=== PATIENT | female | born 1955 | race Caucasian/White ===

== ENCOUNTER 2022-01-19 06:50 | Outpatient (CLI) | payer MEDICARE, BC ==
[~2022-01-19] VITALS: Ht 167.6 cm; Wt 82.6 kg
[~2022-01-19 06:50] MED LIST: ALBU8HFA PO; AMIT10TA6 PO; CARI-75 PO; CHOL400T57 PO; GABA-532 PO; HYDR-3972 PO; LOSA100T57 PO; ONDA4TAB12 PO; PRE5T PO; RIZA10TA98 PO; SPIIN INH
[2022-01-19 07:25] LABS: ABG BASE EXCESS -1.7 mmol/L (-2.0-2.0); ABG OXYGEN SATURATION 96.7 % (94-97); ABG PCO2 (T) 39.1 mmHg (32.0-45.0); ABG PO2 (T) 93.3 mmHg (75.0-100.0); ALLEN'S TEST POSITIVE; FCOHb 0.7 % (0.0-3.9); FMetHb 0.3 % (0.0-1.5); FO2Hb 95.7 % (94-97); TOTAL HEMOGLOBIN 12.6 G/dl (12.0-16.0)
[2022-01-19] MEDS ORDERED: albuterol 2.5 MG/3 ML nebule NEB PRN (07:50)
== END 2022-01-19 23:59 | disposition home or self-care (01) ==
LOC: RT 06:50
PROVIDERS: ATTEND Internal Medicine Rheumatology
DX: J84.9 Interstitial pulmonary disease, unspecified (principal); Z87.891 Personal history of nicotine dependence; Z79.899 Other long term (current) drug therapy
CPT/HCPCS: 36600; 82803; 85018; 94060; 94727; 94729; 94760

== ENCOUNTER 2023-01-08 13:38 | Outpatient (CLI) | payer MEDICARE, BC ==
[~2023-01-08] VITALS: Ht 165.1 cm; Wt 81.2 kg
[~2023-01-08 13:38] MED LIST changes: -LOSA100T57 PO; +LOSA100T58 PO
[2023-01-08] MEDS ORDERED: CYCL-1 PO (14:25)
[2023-01-08] MEDS ORDERED: OLME20TA23 PO (14:25)
[2023-01-08] MEDS ORDERED: ACET-1008 PO (14:29)
[2023-01-08] MEDS ORDERED: COFF1CAP2 PO (14:29)
[2023-01-08] MEDS ORDERED: CALM MAG SUPPLEMENT (14:29)
[2023-01-08] MEDS ORDERED: ALBU2.5V10 INH (14:29)
[2023-01-08] MEDS ORDERED: OSC500T PO (14:29)
[2023-01-15] MEDS ORDERED: ringers solution, lacted 1,000 ML IV SCH (05:00)
[2023-01-15] MEDS ORDERED: albuterol 2.5 MG/3 ML nebule NEB ONE (05:30)
[2023-01-15] MEDS ORDERED: tranexamic acid inj. 1,000 MG in normal saline IV soln 100ML IV ONE (05:30)
[2023-01-15] MEDS ORDERED: oxymetazoline 15 ML nasal spray NS ONE (05:30)
== END 2023-01-08 23:59 | disposition home or self-care (01) ==
LOC: LAB 13:38 → EDSTATUS 01-15 11:45
PROVIDERS: ATTEND Otolaryngology
DX: Z01.818 Encounter for other preprocedural examination (principal); R94.31 Abnormal electrocardiogram [ECG] [EKG]; I25.2 Old myocardial infarction; Z20.822 Contact with and (suspected) exposure to COVID-19
CPT/HCPCS: 36415; 93005; U0003; J3490; J7120

== ENCOUNTER 2023-01-11 07:46 | Emergency (ER) | payer MEDICARE, BC ==
[~2023-01-11] VITALS: Ht 165.1 cm; Wt 82.0 kg
[~2023-01-11 07:46] MED LIST changes: +ACET-1008 PO; +ALBU2.5V10 INH; +CALM MAG SUPPLEMENT; -CARI-75 PO; -CHOL400T57 PO; +COFF1CAP2 PO; +CYCL-1 PO; +LOSA100T57 PO; -LOSA100T58 PO; +OLME20TA23 PO; -ONDA4TAB12 PO; +OSC500T PO; -PRE5T PO; -SPIIN INH
[2023-01-11 07:55] VITALS: BP 157/102
[2023-01-11] MEDS ORDERED: LIDOcaine/epinephrine/tetracaine TOPICAL sol 3 ML syringe TOP ONE (10:25)
[2023-01-11] MEDS ORDERED: HYDROcodone/acetaminophen 10/325mg tab PO ONE (10:25)
[2023-01-11] MEDS ORDERED: CEPH500C82 PO (11:46)
[2023-01-11] MEDS ORDERED: SULF1TAB49 PO (11:46)
== END 2023-01-11 12:06 | disposition home or self-care (01) ==
LOC: ER 07:47
DX: L03.011 Cellulitis of right finger (principal); I12.0 Hypertensive chronic kidney disease with stage 5 chronic kidney disease or end stage renal disease; N18.9 Chronic kidney disease, unspecified; Z88.1 Allergy status to other antibiotic agents; Z88.8 Allergy status to other drugs, medicaments and biological substances
CPT/HCPCS: 10060; 87070; 99283; J3490; J7030; A6449

== ENCOUNTER 2023-03-12 13:56 | Emergency (ER) | payer MEDICARE, BC ==
[~2023-03-12] VITALS: Ht 166.4 cm; Wt 79.5 kg
[~2023-03-12 13:56] MED LIST changes: -LOSA100T57 PO
[2023-03-12 15:56] VITALS: BP 167/97
[2023-03-12] MEDS ORDERED: GABAPENTIN 300 MG/6 ML oral SOLUTION cup PO SCH (16:30)
[2023-03-12] MEDS ORDERED: morphine 4 MG/ML inj SYRINge IM ONE (16:30)
[2023-03-12] MEDS ORDERED: gabapentin 300mg capsule PO ONE (16:30)
[2023-03-12] MEDS ORDERED: HYDR-3973 PO (16:42)
== END 2023-03-12 16:58 | disposition home or self-care (01) ==
LOC: ER 13:57
DX: G62.9 Polyneuropathy, unspecified (principal); M79.671 Pain in right foot; M67.972 Unspecified disorder of synovium and tendon, left ankle and foot; I77.6 Arteritis, unspecified; J45.909 Unspecified asthma, uncomplicated; I12.9 Hypertensive chronic kidney disease with stage 1 through stage 4 chronic kidney disease, or unspecified chronic kidney disease; N18.9 Chronic kidney disease, unspecified; G43.909 Migraine, unspecified, not intractable, without status migrainosus; G89.29 Other chronic pain; M54.9 Dorsalgia, unspecified; Z88.8 Allergy status to other drugs, medicaments and biological substances; Z88.1 Allergy status to other antibiotic agents; Z79.899 Other long term (current) drug therapy
CPT/HCPCS: 96372; 99283; J2270

== ENCOUNTER 2023-03-23 14:28 | Emergency (ER) | payer MEDICARE, BC ==
[~2023-03-23] VITALS: Ht 166.4 cm; Wt 81.4 kg
[~2023-03-23 14:28] MED LIST changes: +HYDR-3973 PO
[2023-03-23] MEDS ORDERED: HYDR-3965 PO (18:36)
[2023-03-23] MEDS ORDERED: SULF1TAB49 PO (18:36)
[2023-03-23] MEDS ORDERED: CEPH-585 PO (18:36)
== END 2023-03-23 19:19 | disposition home or self-care (01) ==
LOC: ER 14:29
DX: L03.116 Cellulitis of left lower limb (principal); L03.115 Cellulitis of right lower limb; I12.9 Hypertensive chronic kidney disease with stage 1 through stage 4 chronic kidney disease, or unspecified chronic kidney disease; N18.9 Chronic kidney disease, unspecified; G43.909 Migraine, unspecified, not intractable, without status migrainosus; G89.29 Other chronic pain; M54.9 Dorsalgia, unspecified; Z88.1 Allergy status to other antibiotic agents; Z88.8 Allergy status to other drugs, medicaments and biological substances; Z79.899 Other long term (current) drug therapy
CPT/HCPCS: 99284; A6222; A6223; A6446; A6449

== ENCOUNTER 2024-01-08 10:48 | Day surgery (SDC) | payer MEDICARE, BC ==
[2024-01-06 11:32] LABS: BASOPHILS # (AUTO) 0.1 X10'3 (0-0.2); EOSINOPHILS # (AUTO) 0.6 X10'3 (0-0.9); EOSINOPHILS % (AUTO) 6.4 % (0-6); HEMATOCRIT 33.8 % (35.0-45.0); HEMOGLOBIN 10.9 g/dl (12.0-16.0); LYMPHOCYTES # (AUTO) 1.2 X10'3 (1.1-4.8); MEAN CORPUSCULAR HEMOGLOBIN 30.8 PG (27.0-31.0); MEAN CORPUSCULAR HGB CONC 32.3 g/dL (33.0-36.5); MEAN CORPUSCULAR VOLUME 95.2 FL (78-98); MEAN PLATELET VOLUME 7.5 FL (7.4-10.4); MONOCYTES # (AUTO) 0.7 X10'3 (0-0.9); MONOCYTES % (AUTO) 7.1 % (2-12); NEUTROPHILS # (AUTO) 6.8 X10'3 (1.8-7.7); NEUTROPHILS % (AUTO) 72.5 % (42-75); PLATELET COUNT 424 X10'3 (140-440); RED BLOOD COUNT 3.55 X10'6 (4.20-5.60); RED CELL DISTRIBUTION WIDTH 13.6 % (11.5-14.5); WHITE BLOOD COUNT 9.4 X10'3 (4.5-11.0)
[2024-01-06 11:42] LABS: BILIRUBIN,URINE NEGATIVE (Neg); CLARITY,URINE CLEAR (Clear); COLOR,URINE YELLOW (Yellow); GLUCOSE, URINE NEGATIVE (Neg); KETONES,URINE NEGATIVE (Neg); LEUKOCYTE ESTERASE ,URINE NEGATIVE (Neg); NITRITES, URINE NEGATIVE (Neg); OCCULT BLOOD,URINE NEGATIVE (Neg); PH,URINE 5.5 (4.8-8.0); PROTEIN,URINE TRACE mg/dl (Neg); UROBILINOGEN,URINE 0.2 E.U/dL (0.2-1.0)
[2024-01-06 11:43] LABS: APTT 28 SECONDS (22-32)
[2024-01-06 11:44] LABS: INR 0.9 INR
[2024-01-06 11:48] LABS: ALANINE AMINOTRANSFERASE 10 U/L (12-78); ALBUMIN 3.2 G/DL (3.4-5.0); ALBUMIN/GLOBULIN RATIO 0.9 (1.1-1.5); ALKALINE PHOSPHATASE 38 IU/L (46-116); ANION GAP 9 (8-16); ASPARTATE AMINO TRANSFERASE 10 U/L (10-37); BILIRUBIN,TOTAL 0.2 MG/DL (0.1-1.0); BLOOD UREA NITROGEN 24 MG/DL (7-18); BUN/CREATININE RATIO 14.3 (10.0-20.0); CALCIUM 8.9 MG/DL (8.5-10.1); CHLORIDE 104 MMOL/L (99-107); CREATININE 1.68 MG/DL (0.40-0.90); GLUCOSE 97 MG/DL (70-104); POTASSIUM 4.2 MMOL/L (3.5-5.1); SODIUM 139 MMOL/L (135-145); TOTAL PROTEIN 6.7 G/DL (6.4-8.2); eGFR 30 ML/MIN
[2024-01-06 11:48] LABS: UA COLLECTION TYPE CLN CATCH MIDSTREAM
[2024-01-06 11:51] LABS: BACTERIA,URINE FEW /HPF (Neg); MUCUS STRANDS NONE SEEN /LPF (Neg); RBC,URINE NONE SEEN /HPF (0-2); SQUAMOUS EPITHELIAL CELL,UR FEW /LPF (FEW); WBC,URINE 0-4 /HPF (0-4)
[~2024-01-08] VITALS: Ht 165.1 cm; Wt 75.5 kg
[2024-01-08] VITALS (25 sets, daily range): BP systolic 123–155; BP diastolic 66–84; PULSE 66–75; RESP 16; TEMP 97.8; O2SAT 94–100
[~2024-01-08 10:48] MED LIST changes: -HYDR-3973 PO; -OLME20TA23 PO; +OLME20TA69 PO
[2024-01-08] MEDS ORDERED: METO-395 PO (11:15)
[2024-01-08] MEDS: LIDOcaine 1% 30ml preserv. free vial SQ STA (13:43)
[2024-01-08] MEDS: MIDAZolam 1mg/ml 10ml vial IV ONE (13:43)
[2024-01-08 15:27] LABS: HEMATOCRIT 30.4 % (35.0-45.0); HEMOGLOBIN 9.9 g/dl (12.0-16.0); MEAN CORPUSCULAR HEMOGLOBIN 30.5 PG (27.0-31.0); MEAN CORPUSCULAR HGB CONC 32.5 g/dL (33.0-36.5); MEAN CORPUSCULAR VOLUME 93.8 FL (78-98); MEAN PLATELET VOLUME 7.3 FL (7.4-10.4); PLATELET COUNT 352 X10'3 (140-440); RED BLOOD COUNT 3.24 X10'6 (4.20-5.60); RED CELL DISTRIBUTION WIDTH 13.5 % (11.5-14.5)
[2024-01-08] MEDS: acetaminophen w/codeine (30MG) #3 tablet PO PRN (15:50)
[2024-01-08 17:03] LABS: HEMATOCRIT 29.4 % (35.0-45.0); HEMOGLOBIN 9.6 g/dl (12.0-16.0); MEAN CORPUSCULAR HGB CONC 32.8 g/dL (33.0-36.5); MEAN CORPUSCULAR VOLUME 94.4 FL (78-98); MEAN PLATELET VOLUME 7.1 FL (7.4-10.4); PLATELET COUNT 345 X10'3 (140-440); RED BLOOD COUNT 3.11 X10'6 (4.20-5.60); RED CELL DISTRIBUTION WIDTH 13.8 % (11.5-14.5); WHITE BLOOD COUNT 8.5 X10'3 (4.5-11.0)
== END 2024-01-08 17:50 | disposition home or self-care (01) ==
LOC: SSTAY O 10:48
PROVIDERS: ATTEND Internal Medicine Critical Care Medicine
DX: N18.30 Chronic kidney disease, stage 3 unspecified (principal); N28.89 Other specified disorders of kidney and ureter; D63.1 Anemia in chronic kidney disease; Z79.899 Other long term (current) drug therapy
CPT/HCPCS: 36415; 50200; 76942; 80053; 81001; 85025; 85027; 85610; 85730; 86885; 86900; 86901; 86920; J2250; J3490; J7030; 88305; A4620; A6449

== ENCOUNTER 2024-01-22 08:13 | Outpatient (CLI) | payer MEDICARE, BC ==
[~2024-01-22 08:13] MED LIST changes: -ACET-1008 PO; -ALBU2.5V10 INH; -CALM MAG SUPPLEMENT; -COFF1CAP2 PO; +METO-395 PO; -RIZA10TA98 PO
== END 2024-01-22 23:59 | disposition home or self-care (01) ==
LOC: RT 08:13
PROVIDERS: ATTEND Internal Medicine Pulmonary Disease
DX: J84.10 Pulmonary fibrosis, unspecified (principal); D53.9 Nutritional anemia, unspecified; J84.9 Interstitial pulmonary disease, unspecified; Z79.899 Other long term (current) drug therapy
CPT/HCPCS: 94010; 94727; 94729

== ENCOUNTER 2024-06-10 08:41 | Outpatient (CLI) | payer MEDICARE, BC ==
[~2024-06-10] VITALS: Ht 166.4 cm; Wt 73.9 kg
[2024-06-10 09:26] LABS: TOTAL HEMOGLOBIN 11.4 G/dl (12.0-16.0)
[2024-06-10 10:03] VITALS: PULSE 80; RESP 18; O2SAT 99
[2024-06-10] MEDS: albuterol 2.5 MG/3 ML nebule NEB ONE (10:10)
[2024-06-10 10:47] VITALS: PULSE 81; RESP 16
== END 2024-06-10 23:59 | disposition home or self-care (01) ==
LOC: RT 08:41
PROVIDERS: ATTEND Internal Medicine Pulmonary Disease
DX: J44.9 Chronic obstructive pulmonary disease, unspecified (principal); J47.9 Bronchiectasis, uncomplicated; R06.00 Dyspnea, unspecified
CPT/HCPCS: 85018; 94060; 94727; 94729; 94760; Z7610

== ENCOUNTER 2024-06-24 09:47 | Emergency (ER) | payer MEDICARE, BC ==
[~2024-06-24] VITALS: Ht 165.1 cm; Wt 73.3 kg
[2024-06-24 10:23] VITALS: TEMP 97.3
[2024-06-24 11:26] LABS: BASOPHILS # (AUTO) 0.1 X10'3 (0-0.2); BASOPHILS % (AUTO) 0.5 % (0-1); EOSINOPHILS # (AUTO) 0.8 X10'3 (0-0.9); EOSINOPHILS % (AUTO) 7.7 % (0-6); HEMATOCRIT 31.5 % (35.0-45.0); HEMOGLOBIN 10.4 g/dl (12.0-16.0); MEAN CORPUSCULAR HEMOGLOBIN 31.2 PG (27.0-31.0); MEAN CORPUSCULAR HGB CONC 32.9 g/dL (33.0-36.5); MONOCYTES # (AUTO) 0.8 X10'3 (0-0.9); MONOCYTES % (AUTO) 7.9 % (2-12); NEUTROPHILS # (AUTO) 7.7 X10'3 (1.8-7.7); NEUTROPHILS % (AUTO) 73.9 % (42-75); PLATELET COUNT 520 X10'3 (140-440); RED BLOOD COUNT 3.32 X10'6 (4.20-5.60); RED CELL DISTRIBUTION WIDTH 14.6 % (11.5-14.5); WHITE BLOOD COUNT 10.4 X10'3 (4.5-11.0)
[2024-06-24 11:33] LABS: BILIRUBIN,URINE NEGATIVE (Neg); CLARITY,URINE CLEAR (Clear); COLOR,URINE YELLOW (Yellow); GLUCOSE, URINE NEGATIVE (Neg); KETONES,URINE NEGATIVE (Neg); LEUKOCYTE ESTERASE ,URINE NEGATIVE (Neg); NITRITES, URINE NEGATIVE (Neg); OCCULT BLOOD,URINE NEGATIVE (Neg); PH,URINE 6.5 (4.8-8.0); PROTEIN,URINE TRACE mg/dl (Neg); UA COLLECTION TYPE CLN CATCH MIDSTREAM; UROBILINOGEN,URINE 0.2 E.U/dL (0.2-1.0)
[2024-06-24 11:38] LABS: ALANINE AMINOTRANSFERASE 13 U/L (12-78); ALBUMIN 3.2 G/DL (3.4-5.0); ALBUMIN/GLOBULIN RATIO 0.8 (1.1-1.5); ALKALINE PHOSPHATASE 50 IU/L (46-116); AMYLASE 59 U/L (25-115); ANION GAP 8 (8-16); ASPARTATE AMINO TRANSFERASE 21 U/L (10-37); BILIRUBIN,TOTAL 0.3 MG/DL (0.1-1.0); BLOOD UREA NITROGEN 32 MG/DL (7-18); BUN/CREATININE RATIO 19.8 (10.0-20.0); CALCIUM 9.8 MG/DL (8.5-10.1); CHLORIDE 99 MMOL/L (99-107); CREATININE 1.62 MG/DL (0.40-0.90); GLUCOSE 79 MG/DL (70-104); LIPASE 59 U/L (16-77); POTASSIUM 4.4 MMOL/L (3.5-5.1); SODIUM 134 MMOL/L (135-145); TOTAL PROTEIN 7.1 G/DL (6.4-8.2); eCRCL 29 ML/MIN; eGFR 32 ML/MIN
[2024-06-24 11:44] LABS: SQUAMOUS EPITHELIAL CELL,UR FEW /LPF (FEW)
[2024-06-24 11:45] LABS: BACTERIA,URINE NONE SEEN /HPF (Neg); RBC,URINE 0-2 /HPF (0-2); WBC,URINE 0-4 /HPF (0-4)
[2024-06-24 13:00] VITALS: BP 157/90; PULSE 70; RESP 15; O2SAT 95
[2024-06-24] MEDS ORDERED: iohexol 300mg/ml 100ml inj. ONE (13:08)
--- NOTE | 2024-06-24 13:13 | NUR ---
to ct scan via wheelchair in stable condition.
[2024-06-24] MEDS: normal saline 1000ml 1,000 ML IV ONE (14:04)
[2024-06-24] MEDS: acetaminophen 1,000mg/100ml IV 100 ML IV SCH (14:04)
--- NOTE | 2024-06-24 14:10 | NUR ---
kevin Galeana changed NS at 200cc/hr to bolus.
[2024-06-24] MEDS: methylnaltrexone br 12mg/0.6ml inj***SubQ only SQ ONE (14:32)
== END 2024-06-24 15:07 | disposition home or self-care (01) ==
LOC: ER 09:47
DX: K59.03 Drug induced constipation (principal); G43.909 Migraine, unspecified, not intractable, without status migrainosus; J45.909 Unspecified asthma, uncomplicated; I12.9 Hypertensive chronic kidney disease with stage 1 through stage 4 chronic kidney disease, or unspecified chronic kidney disease; N18.9 Chronic kidney disease, unspecified; G89.29 Other chronic pain; M54.9 Dorsalgia, unspecified; Z88.8 Allergy status to other drugs, medicaments and biological substances; Z88.1 Allergy status to other antibiotic agents; Z79.899 Other long term (current) drug therapy; Z98.890 Other specified postprocedural states
CPT/HCPCS: 36415; 74177; 80053; 81001; 82150; 83690; 85025; 96372; 96374; 99285; J0131; J2212; J7030; Q9967

== ENCOUNTER 2025-01-01 16:04 | Inpatient (IN) | payer MEDICARE, BC ==
[~2025-01-01] VITALS: Ht 165.1 cm; Wt 71.0 kg
[2025-01-01 17:22] LABS: BASOPHILS # (AUTO) 0.1 X10'3 (0-0.2); NEUTROPHILS % (AUTO) 78.7 % (42-75)
[2025-01-01 17:23] LABS: BASOPHILS % (AUTO) 1.1 % (0-1); EOSINOPHILS # (AUTO) 0.4 X10'3 (0-0.9); EOSINOPHILS % (AUTO) 3.3 % (0-6); HEMATOCRIT 28.5 % (35.0-45.0); HEMOGLOBIN 9.2 g/dl (12.0-16.0); LYMPHOCYTES # (AUTO) 0.9 X10'3 (1.1-4.8); MEAN CORPUSCULAR HGB CONC 32.3 g/dL (33.0-36.5); MEAN CORPUSCULAR VOLUME 92.8 FL (78-98); MEAN PLATELET VOLUME 7.1 FL (7.4-10.4); MONOCYTES % (AUTO) 8.9 % (2-12); PLATELET COUNT 639 X10'3 (140-440); RED BLOOD COUNT 3.07 X10'6 (4.20-5.60); WHITE BLOOD COUNT 11.4 X10'3 (4.5-11.0)
[2025-01-01 17:44] LABS: ALBUMIN 2.5 G/DL (3.4-5.0); ANION GAP 11 (8-16); BLOOD UREA NITROGEN 36 MG/DL (7-18); BUN/CREATININE RATIO 20.9 (10.0-20.0); CHLORIDE 98 MMOL/L (99-107); CREATININE 1.72 MG/DL (0.40-0.90); GLUCOSE 94 MG/DL (70-104); POTASSIUM 4.2 MMOL/L (3.5-5.1); PRO BRAIN NATRIURETIC PEPTIDE 861 PG/ML (0-125); SODIUM 132 MMOL/L (135-145); TOTAL CARBON DIOXIDE 23.4 MMOL/L (24-32); eCRCL 27 ML/MIN; eGFR 29 ML/MIN
[2025-01-01 18:47] VITALS: PULSE 91; RESP 20; O2SAT 95
[2025-01-01] MEDS: ipratropium/albuterol 3ml nebule NEB ONE (18:47)
[2025-01-01] MEDS ORDERED: cefepime 1GM/NS ADD-VANTAGE 100 ML IV STA (18:53)
[2025-01-01 18:55] VITALS: PULSE 91; RESP 20; O2SAT 95
[2025-01-01] MEDS: cefepime 1GM in D5W 50mL 50 ML IV STA (19:18)
[2025-01-01 19:47] LABS: ALANINE AMINOTRANSFERASE 12 U/L (12-78); ALBUMIN/GLOBULIN RATIO 0.6 (1.1-1.5); ALKALINE PHOSPHATASE 103 IU/L (46-116); ASPARTATE AMINO TRANSFERASE 18 U/L (10-37); BILIRUBIN,DIRECT 0.1 MG/DL (0-0.3); BILIRUBIN,TOTAL 0.2 MG/DL (0.1-1.0); TOTAL PROTEIN 6.9 G/DL (6.4-8.2)
[2025-01-01 19:56] LABS: C-REACTIVE PROTEIN 32.22 MG/DL (0.0-0.5)
[2025-01-01 20:35] LABS: BILIRUBIN,URINE NEGATIVE (Neg); CLARITY,URINE CLEAR (Clear); COLOR,URINE YELLOW (Yellow); GLUCOSE, URINE NEGATIVE (Neg); KETONES,URINE NEGATIVE (Neg); LEUKOCYTE ESTERASE ,URINE NEGATIVE (Neg); NITRITES, URINE NEGATIVE (Neg); OCCULT BLOOD,URINE SMALL (Neg); PROTEIN,URINE NEGATIVE (Neg); UROBILINOGEN,URINE 0.2 E.U/dL (0.2-1.0)
[2025-01-01 20:39] LABS: UA COLLECTION TYPE CLN CATCH MIDSTREAM
[2025-01-01 20:40] LABS: BACTERIA,URINE 1+ /HPF (Neg); RBC,URINE 0-2 /HPF (0-2); WBC,URINE 0-4 /HPF (0-4)
[2025-01-01] MEDS ORDERED: magnesium hydroxide 30ml (MOM) UD suspension PO PRN (20:40)
[2025-01-01] MEDS ORDERED: potassium Cl 20 mEq SR tablet PO PRN ×2 (20:40)
[2025-01-01] MEDS ORDERED: mag hydrox/Alum hydrox/simeth 30ml oral suspension PO PRN (20:40)
[2025-01-01] MEDS ORDERED: acetaminophen 325mg tablet PO PRN (20:40)
[2025-01-01] MEDS ORDERED: magnesium sulf-water 4G/100mL 100 ML IV PRN (20:40)
[2025-01-01] MEDS ORDERED: magnesium sulf-water 2g/50mL 50 ML IV PRN (20:40)
[2025-01-01] MEDS ORDERED: magnesium Cl slow-release 64mg tablet PO PRN (20:40)
[2025-01-01] MEDS ORDERED: potassium Cl 40MEQ/1/2NS 520ml 520 ML IV PRN (20:40)
[2025-01-01 20:41] LABS: SQUAMOUS EPITHELIAL CELL,UR MANY /LPF (FEW)
[2025-01-01] MEDS ORDERED: VANCOMYCIN 750MG IV in NS 250 ML IV SCH (21:00)
[2025-01-01] MEDS: ondansetron/PF 4mg/2ml inj IV PRN (21:19)
[2025-01-01] MEDS: morphine 2 MG/ML inj. syringe IV PRN (21:19)
[2025-01-01] MEDS: doxycycline inj 100 MG in normal saline 100ml IV soln 100 ML IV SCH (21:47)
[2025-01-01] MEDS: methylPREDNISolone sod succ 125mg/2ml vial IV ONE (22:07)
[2025-01-01] MEDS: furosemide 10 MG/1 ML 10ml inj IV ONE (22:07)
[2025-01-02] VITALS (7 sets, daily range): BP systolic 140–155; BP diastolic 70–101; PULSE 96–109; RESP 15–18; TEMP 96.9–98.8; O2SAT 91–98
[2025-01-02] MEDS: magnesium hydroxide 30ml (MOM) UD suspension PO ONE (00:14)
[2025-01-02] MEDS: acetaminophen 325mg tablet PO PRN (01:34)
[2025-01-02 06:02] LABS: BASOPHILS % (AUTO) 0.3 % (0-1); EOSINOPHILS % (AUTO) 0 % (0-6); HEMOGLOBIN 9.2 g/dl (12.0-16.0); LYMPHOCYTES # (AUTO) 0.3 X10'3 (1.1-4.8); LYMPHOCYTES % (AUTO) 2.5 % (21-51); MEAN CORPUSCULAR HEMOGLOBIN 30.5 PG (27.0-31.0); MEAN CORPUSCULAR HGB CONC 32.9 g/dL (33.0-36.5); MEAN CORPUSCULAR VOLUME 92.7 FL (78-98); MEAN PLATELET VOLUME 6.9 FL (7.4-10.4); MONOCYTES # (AUTO) 0.1 X10'3 (0-0.9); MONOCYTES % (AUTO) 1.1 % (2-12); NEUTROPHILS # (AUTO) 10.6 X10'3 (1.8-7.7); NEUTROPHILS % (AUTO) 96.1 % (42-75); PLATELET COUNT 642 X10'3 (140-440); RED BLOOD COUNT 3.02 X10'6 (4.20-5.60); RED CELL DISTRIBUTION WIDTH 14.1 % (11.5-14.5)
[2025-01-02 06:22] LABS: ALANINE AMINOTRANSFERASE 12 U/L (12-78); ALBUMIN 2.4 G/DL (3.4-5.0); ALBUMIN/GLOBULIN RATIO 0.5 (1.1-1.5); ALKALINE PHOSPHATASE 101 IU/L (46-116); ANION GAP 12 (8-16); ASPARTATE AMINO TRANSFERASE 16 U/L (10-37); BILIRUBIN,TOTAL 0.3 MG/DL (0.1-1.0); BLOOD UREA NITROGEN 35 MG/DL (7-18); BUN/CREATININE RATIO 20.3 (10.0-20.0); CALCIUM 9.1 MG/DL (8.5-10.1); CHLORIDE 99 MMOL/L (99-107); CHOLESTEROL 127 MG/DL (0-200); CREATININE 1.72 MG/DL (0.40-0.90); GLUCOSE 136 MG/DL (70-104); HDL CHOLESTEROL 62 MG/DL (35-60); LDL CHOLESTEROL 46 MG/DL (50-100); MAGNESIUM 2.1 MG/DL (1.5-2.4); POTASSIUM 4.5 MMOL/L (3.5-5.1); SODIUM 134 MMOL/L (135-145); TOTAL CARBON DIOXIDE 22.7 MMOL/L (24-32); TOTAL PROTEIN 6.9 G/DL (6.4-8.2); TRIGLYCERIDES 40 MG/DL (20-135); eCRCL 27 ML/MIN; eGFR 29 ML/MIN
[2025-01-02] MEDS: K and/or MAG REPLACEMENT MC SCH (08:00)
[2025-01-02] MEDS: docusate sod 100mg capsule PO SCH (08:08)
[2025-01-02] MEDS: furosemide 10 MG/1 ML 10ml inj IV SCH (08:09)
[2025-01-02] MEDS: methylPREDNISolone sod succ 125mg/2ml vial IV ONE (08:10)
[2025-01-02] MEDS: CefTRIAXone/D5W-Rocephin 1gm 50 ML IV SCH (08:17)
[2025-01-02] MEDS ORDERED: MYCO250C46 PO (10:10)
[2025-01-02] MEDS: gabapentin 300mg capsule PO SCH ×2 (12:33→19:58)
[2025-01-02 13:22] LABS: LACTATE DEHYDROGENASE 199 U/L (81-234)
[2025-01-02] MEDS: methylPREDNISolone sod succ 125mg/2ml vial IV SCH (14:00)
[2025-01-02 15:14] LABS: GLUCOSE,BODY FLUID 122 MG/DL; LDH,BODY FLUID 333 U/L; TOTAL PROTEIN,BODY FLUID 4.7 G/DL
[2025-01-02 16:32] LABS: BFSOURCE PLEURAL FLD
[2025-01-02 16:33] LABS: BF RBC COUNT 104400 /CU MM; BF WBC COUNT 300 /CU MM (0-1000); BFAPPEAR BLOODY; BFCOLOR RED; BFVOLUME 210 ML; EOSINOPHILS,BODY FLUID 6 %; LYMPHOCYTES,BODY FLUID 40 %; MONOCYTES,BODY FLUID 16 %; NEUTROPHILS,BODY FLUID 38 %
[2025-01-02] MEDS: HYDROcodone/acetaminophen 10/325mg tab PO PRN (17:26)
[2025-01-02] MEDS: cyclobenzaprine 10mg tablet PO SCH (19:57)
[2025-01-02] MEDS: mycophenolate mofetil 250mg capsule PO SCH (19:59)
[2025-01-03 06:00] VITALS: BP 131/72; PULSE 86; RESP 16; TEMP 98; O2SAT 97
[2025-01-03 06:03] LABS: BASOPHILS % (AUTO) 0 % (0-1); EOSINOPHILS % (AUTO) 0 % (0-6); MEAN CORPUSCULAR HEMOGLOBIN 29.3 PG (27.0-31.0); MONOCYTES # (AUTO) 1.3 X10'3 (0-0.9); WHITE BLOOD COUNT 15.6 X10'3 (4.5-11.0)
[2025-01-03 06:05] LABS: HEMATOCRIT 28.6 % (35.0-45.0); LYMPHOCYTES # (AUTO) 0.7 X10'3 (1.1-4.8); LYMPHOCYTES % (AUTO) 4.5 % (21-51); MEAN CORPUSCULAR HGB CONC 31.6 g/dL (33.0-36.5); MEAN CORPUSCULAR VOLUME 92.9 FL (78-98); MONOCYTES % (AUTO) 8.3 % (2-12); NEUTROPHILS # (AUTO) 13.6 X10'3 (1.8-7.7); NEUTROPHILS % (AUTO) 87.2 % (42-75); PLATELET COUNT 697 X10'3 (140-440); RED BLOOD COUNT 3.08 X10'6 (4.20-5.60); RED CELL DISTRIBUTION WIDTH 14.1 % (11.5-14.5)
[2025-01-03 06:51] LABS: ALANINE AMINOTRANSFERASE 12 U/L (12-78); ALBUMIN 2.3 G/DL (3.4-5.0); ALBUMIN/GLOBULIN RATIO 0.5 (1.1-1.5); ALKALINE PHOSPHATASE 89 IU/L (46-116); ANION GAP 10 (8-16); ASPARTATE AMINO TRANSFERASE 16 U/L (10-37); BILIRUBIN,TOTAL 0.2 MG/DL (0.1-1.0); BLOOD UREA NITROGEN 46 MG/DL (7-18); BUN/CREATININE RATIO 22.4 (10.0-20.0); CALCIUM 8.2 MG/DL (8.5-10.1); CHLORIDE 99 MMOL/L (99-107); CREATININE 2.05 MG/DL (0.40-0.90); GLUCOSE 100 MG/DL (70-104); MAGNESIUM 2.2 MG/DL (1.5-2.4); POTASSIUM 4.1 MMOL/L (3.5-5.1); SODIUM 133 MMOL/L (135-145); TOTAL CARBON DIOXIDE 24.5 MMOL/L (24-32); TOTAL PROTEIN 6.7 G/DL (6.4-8.2); eCRCL 23 ML/MIN; eGFR 24 ML/MIN
[2025-01-03 07:43] VITALS: BP 137/78; PULSE 83; RESP 16; TEMP 97.6; O2SAT 96
[2025-01-03] MEDS: metoprolol succinate 25mg (24-HOUR) SR. Tablet PO SCH (08:05)
[2025-01-03] MEDS: calcium carbonate 500mg tablet PO SCH (08:07)
[2025-01-03] MEDS: losartan 50mg tablet PO SCH (08:09)
[2025-01-03 08:16] VITALS: RESP 16
[2025-01-03 10:00] VITALS: BP 111/65; PULSE 78; RESP 18; TEMP 97.4; O2SAT 98
[2025-01-03 11:30] VITALS: O2SAT 98
[2025-01-03] MEDS ORDERED: FURO-150 PO (12:04)
[2025-01-03] MEDS ORDERED: PRED10TA23 PO (12:04)
[2025-01-03] MEDS ORDERED: DOXY-243 PO (12:04)
[2025-01-03 12:11] VITALS: O2SAT 98
== END 2025-01-03 16:29 | disposition home health service (06) | DRG 189 ==
LOC: ER 16:04 → ED HOLD 20:48 → EDBEDREQ 23:42 → ORTHO 4S 01-02 00:35
PROVIDERS: ADMIT Internal Medicine Critical Care Medicine; ATTEND Internal Medicine
PROC: 0W9B3ZZ Drainage of Left Pleural Cavity, Percutaneous Approach (ICD-10-PCS; principal; 2025-01-02)
DX: J96.01 Acute respiratory failure with hypoxia (principal); I26.09 Other pulmonary embolism with acute cor pulmonale; J18.9 Pneumonia, unspecified organism; J90 Pleural effusion, not elsewhere classified; J45.909 Unspecified asthma, uncomplicated; Z20.822 Contact with and (suspected) exposure to COVID-19; I12.9 Hypertensive chronic kidney disease with stage 1 through stage 4 chronic kidney disease, or unspecified chronic kidney disease; M54.9 Dorsalgia, unspecified; G43.909 Migraine, unspecified, not intractable, without status migrainosus; G89.29 Other chronic pain; N18.30 Chronic kidney disease, stage 3 unspecified; G62.9 Polyneuropathy, unspecified; K59.00 Constipation, unspecified; Z88.1 Allergy status to other antibiotic agents; Z79.899 Other long term (current) drug therapy
CPT/HCPCS: 32554; 36415; 71045; 71250; 80048; 80053; 80061; 80076; 81001; 82945; 83036; 83605; 83615; 83735; 83880; 84145; 84157; 84484; 85025; 86140; 86738; 87040; 87070; 87075; 87081; 87502; 87503; 87811; 89051; 93005; 93306; 94640; 94760; 96365; 96375; 97116; 97161; 97530; 99291; A4615; A6258; G0378; J0692; J0696; J1940; J2270; J2405; J2919; J3490; J7040; J7517